=== PATIENT | female | born 1980 | race Hispanic/Latino ===

== ENCOUNTER 2021-10-21 05:34 | Observation (INO) | payer OTHER ==
[2021-10-20 12:17] LABS: BASOPHILS % (AUTO) 0.1 % (0.0-5.0); EOSINOPHILS % (AUTO) 0.9 % (0.0-8.0); HEMATOCRIT 39.7 % (36-48); LYMPHOCYTES % (AUTO) 32.3 % (21.0-51.0); MEAN CORPUSCULAR HEMOGLOBIN 28.7 pg (27.0-33.0); MEAN CORPUSCULAR HGB CONC 33.5 g/dL (32.0-36.0); MEAN CORPUSCULAR VOLUME 85.6 fL (79-99); MONOCYTES % (AUTO) 7.3 % (3.0-13.0); NEUTROPHILS % (AUTO) 59.1 % (40.0-77.0); PLATELET COUNT (AUTO) 253 K/uL (130-400); RED BLOOD CELL COUNT(AUTO) 4.64 MIL/uL (4.00-5.50); RED CELL DISTRIBUTION WIDTH 11.8 % (11.0-15.5); WHITE BLOOD COUNT (AUTO) 6.9 K/uL (4.8-10.8)
[2021-10-20 12:34] VITALS: BP 188/98
[~2021-10-21] VITALS: Ht 160 cm; Wt 100.6 kg
[2021-10-21] VITALS (25 sets, daily range): BP systolic 147–181; BP diastolic 71–96
[~2021-10-21 05:34] MED LIST: ATOR20TA65 PO; LOSA100T58 PO; METH-386 PO
[2021-10-21] MEDS ORDERED: LACTATED RINGERS 1000ML 1,000 ML IV ONE (06:45)
[2021-10-21] MEDS: CEFAZOLIN SODIUM 1 GM VIAL ONE ×2 (07:01→10:34)
[2021-10-21] MEDS ORDERED: ACETAMINOPHEN 500 MG TABLET ONE (09:17)
[2021-10-21] MEDS ORDERED: KETAMINE 50MG/ML SYRINGE 50 MG/ML DISP.SYRIN IV ONE (09:17)
[2021-10-21] MEDS ORDERED: ROCURONIUM 10MG/1ML SYR 10 MG/ML ML ONE ×2 (09:23→10:55)
[2021-10-21] MEDS ORDERED: SUCCINYLCHOLINE 200MG/10ML SYR ONE (09:23)
[2021-10-21] MEDS ORDERED: ONDANSETRON 4MG INJ ONE (09:23)
[2021-10-21] MEDS ORDERED: PROPOFOL 10 MG/ML 20ML VIAL IV ONE (09:23)
[2021-10-21] MEDS ORDERED: LIDOCAINE PF 100MG/5ML (2%) SYRINGE 5ML ONE (09:23)
[2021-10-21] MEDS ORDERED: MIDAZOLAM HCL 1 MG/ML 2ML VIAL ONE (09:23)
[2021-10-21] MEDS ORDERED: GLYCOPYRROLATE 1 MG/5 ML SYRINGE ONE (11:59)
[2021-10-21] MEDS ORDERED: NEOSTIGMINE 5MG/5ML SYR IV ONE (11:59)
[2021-10-21] MEDS ORDERED: FENTANYL CITRATE PF 50 MCG/1 ML 2ML VIAL ONE ×2 (11:59→12:05)
[2021-10-21] MEDS ORDERED: DEXAMETHASONE SOD PHOSPHATE 10MG/ML 1ML VIAL ONE (11:59)
[2021-10-21] MEDS ORDERED: KETOROLAC 30MG VIAL (30MG/ML) ONE (12:02)
[2021-10-21] MEDS ORDERED: MEPERIDINE-PF 25 MG/ML SYG ONE ×2 (12:43→12:55)
[2021-10-21] MEDS ORDERED: LABETALOL 20MG VIAL IV ONE (12:50)
[2021-10-21] MEDS ORDERED: DOCUSATE SODIUM 100 MG CAP PO PRN (14:00)
[2021-10-21] MEDS ORDERED: IBUPROFEN 600 MG TABLET PO PRN (14:00)
[2021-10-21] MEDS ORDERED: SIMETHICONE 80 MG TAB.CHEW PO PRN (14:00)
[2021-10-21] MEDS ORDERED: ONDANSETRON 4MG INJ IVP PRN (14:00)
[2021-10-21] MEDS ORDERED: BISACODYL 10 MG SUPP.RECT RC PRN (14:00)
[2021-10-21] MEDS ORDERED: ACETAMINOPHEN WITH CODEINE 1 TAB TAB PO PRN (14:00)
[2021-10-21] MEDS ORDERED: PROMETHAZINE HCL 25 MG/ML 1ML AMPULE IM PRN (14:00)
[2021-10-21] MEDS: PROMETHAZINE HCL 25 MG/ML 1ML AMPULE IM PRN ×3 (14:20→23:26)
[2021-10-21] MEDS: MEPERIDINE-PF 75 MG/ML SYG IM PRN ×3 (14:20→23:26)
[2021-10-21] MEDS: DEXTROSE 5 %-0.45 % NACL 1,000 ML IV PRN ×2 (16:20→23:26)
[2021-10-22 00:25] VITALS: BP 153/92
[2021-10-22] MEDS ORDERED: IBUPROFEN 800 MG TAB PO PRN (00:30)
[2021-10-22 03:23] VITALS: BP 135/82
[2021-10-22 06:50] LABS: HEMATOCRIT 35.4 % (36-48); MEAN CORPUSCULAR HEMOGLOBIN 28.7 pg (27.0-33.0); MEAN CORPUSCULAR HGB CONC 34.2 g/dL (32.0-36.0); MEAN CORPUSCULAR VOLUME 83.9 fL (79-99); RED BLOOD CELL COUNT(AUTO) 4.22 MIL/uL (4.00-5.50); RED CELL DISTRIBUTION WIDTH 11.6 % (11.0-15.5); WHITE BLOOD COUNT (AUTO) 13.7 K/uL (4.8-10.8)
[2021-10-22] MEDS ORDERED: HYDROCODONE/ACETAMINOPHEN 5/325 MG TAB PO PRN (07:00)
[2021-10-22 07:17] VITALS: BP 165/77
[2021-10-22] MEDS: METHIMAZOLE 10 MG TAB PO SCH ×2 (07:32→09:00)
[2021-10-22] MEDS: LOSARTAN 100 MG TABLET PO SCH ×2 (08:50→09:00)
[2021-10-22] MEDS: ATORVASTATIN 20 MG TABLET PO SCH ×2 (08:51→09:00)
[2021-10-22] MEDS ORDERED: ATORVASTATIN 20 MG TABLET PO SCH (09:00)
[2021-10-22] MEDS ORDERED: LOSARTAN 100 MG TABLET PO SCH (09:00)
[2021-10-22] MEDS ORDERED: METHIMAZOLE 10 MG TAB PO SCH (09:00)
[2021-10-22 11:13] VITALS: BP 164/83
== END 2021-10-22 13:55 | disposition home or self-care (01) ==
LOC: DAH 05:34 → DAHIP 05:35 → WSH 13:35
PROVIDERS: ADMIT Obstetrics & Gynecology; ATTEND Obstetrics & Gynecology
DX: N81.4 Uterovaginal prolapse, unspecified (principal); Z20.822 Contact with and (suspected) exposure to COVID-19; D25.9 Leiomyoma of uterus, unspecified; K46.9 Unspecified abdominal hernia without obstruction or gangrene; N83.209 Unspecified ovarian cyst, unspecified side; I10 Essential (primary) hypertension; E03.9 Hypothyroidism, unspecified; Z79.899 Other long term (current) drug therapy
CPT/HCPCS: 36415 ×2; 57268; 58552; 84703; 85025; 85027; 86850; 86900; 86901; 87635; 96372; 96374; A4215 ×2; A4216; A4221; A4222; A4223 ×2; A4344; A4510; A4600; A4649 ×2; A4663; A4930; A5120; A6260; C1769; C9803; G0378 ×29; G0379; J0330; J0690; J1100; J1885; J2001; J2175 ×5; J2250; J2405; J2550 ×3; J2704; J2710; J3010 ×2; J3490 ×3; J7030; J7120